=== PATIENT | male | born 2005 | race Caucasian/White ===

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

== ENCOUNTER 2023-02-01 01:49 | Emergency (ER) | payer BC ==
[2023-02-01 02:08] VITALS: BP 148/93; O2SAT 98
--- NOTE | 2023-02-01 04:15 | ED Physician Documentation ---
PD HPI BACK PAIN - Stated complaint Stated Complaint: BACK PX - Chief complaint Chief Complaint: Back Pain - History obtained from History obtained from: Patient - Additional information Additional information: HPI from patient. Patient c/o left low back radiating to left flank, sudden onset when swinging a golf club while playing a round of golf. The pain was sudden but mild at onset, gradually progressive since then. Pain is worse with movement and certain positions. Has not taken any OTC medications for the pain. He also notes intermittently waking up with LUE paresthesias which resolve within minutes of waking up and repositioning. There is no upper extremity pain. Review of Systems Constitutional: reports: Reviewed and negative Cardiac: reports: Reviewed and negative Respiratory: reports: Reviewed and negative GI: reports: Reviewed and negative Skin: reports: Reviewed and negative Musculoskeletal: reports: Back pain (left LBP), Reviewed and negative Neurologic: reports: Numbness (paresthesias LUE, transient and episodic, lasting a minute or two afer waking up (sometimes)). denies: Generalized weakness, Focal weakness, Headache PD PAST MEDICAL HISTORY - Past Medical History Past Medical History: No Cardiovascular: Other Derm: Other - Past Surgical History Past Surgical History: No - Present Medications Home Medications: Ambulatory Orders Medication Instructions Recorded Confirmed Ondansetron Odt [Zofran Odt] 4 mg TL Q6H PRN #10 tablet 05/14/21 - Allergies Allergies/Adverse Reactions: Allergies Allergy/AdvReac Type Severity Reaction Status Date / Time Penicillins Allergy Rash Verified 05/14/21 21:48 - Social History Does the pt smoke?: No Smoking Status: Never smoker Does the pt drink ETOH?: No Does the pt have substance abuse?: No - Immunizations Immunizations are current?: Yes - POLST Patient has POLST: No PD ED PE NORMAL - Vitals Vital signs reviewed: Yes - General General: Alert and oriented X 3, No acute distress, Well developed/nourished - Neck Neck: Supple, no meningeal sign, No bony TTP - Cardiac Cardiac: RRR, No murmur - Respiratory Respiratory: No respiratory distress, Clear bilaterally - Derm Derm: Normal color, Warm and dry - Extremities Extremities: No deformity, No tenderness to palpate, Normal ROM s pain, No edema, Other (LUE: brisk capillary refill in fingertips, strong radial pulse, LTS intact) - Neuro Neuro: Alert and oriented X 3, training development specialist 2-12 intact, No motor deficit, No sensory deficit, Normal speech Results - Vitals Vitals: Oxygen O2 Source Room air PD Medical Decision Making - ED course ED course: lumbar symptoms coincided with swinging a golf club, strongly suspect mild muscular strain.Emergent testing not indicated at this time, recommended relative rest, follow up with PMD if symptoms do not resolve within 3-5 days. The LUE paresthesias seem a separate issue from the lower back strain/sprain. He describes episodes of waking from sleep with numbness of the LUE, resolves within less than a minute of repositioning. This sounds s/o position-dependent vascular occlusion; no testing nor specific treatment is indicated at this time. Departure - Departure Disposition: 01 Home, Self Care Clinical Impression: Lumbar sprain Qualifiers: Encounter type: initial encounter Qualified Code(s): S33.5XXA - Sprain of ligaments of lumbar spine, initial encounter Condition: Good Instructions: ED Sprain Strain Lumbar Comments: I suspect that the left lower back discomfort is due to a lumbar strain/sprain. You can try ibuprofen for the discomfort; follow the [id number] label instructions. If your symptoms persist beyond the next 1 or 2 days, seek follow-up with your primary care provider for reevaluation. Discharge Date/Time: 02/01/23 04:59
== END 2023-02-01 04:59 | disposition home or self-care (01) ==
LOC: ED 01:49
DX: S33.5XXA Sprain of ligaments of lumbar spine, initial encounter (principal); X50.1XXA Overexertion from prolonged static or awkward postures, initial encounter; Y93.53 Activity, golf; Y92.39 Other specified sports and athletic area as the place of occurrence of the external cause
CPT/HCPCS: 99281; 99283